=== PATIENT | female | born 1975 | race Caucasian/White ===

== ENCOUNTER 2020-12-05 10:21 | Outpatient (CLI) | payer BC | END 2020-12-05 10:22 | disposition home or self-care (01) | LOC: CSHLAB 10:21 | PROVIDERS: ATTEND Obstetrics & Gynecology | DX: Z01.812 Encounter for preprocedural laboratory examination (principal); Z20.822 Contact with and (suspected) exposure to COVID-19; N39.3 Stress incontinence (female) (male) | CPT/HCPCS: 85027; 86850; 86900; 86901; 87635; U0003; U0005 ==

== ENCOUNTER 2020-12-10 10:16 | Day surgery (SDC) | payer BC ==
[2020-12-05 12:43] LABS: Hemoglobin 14.3 g/dL (12.0-15.5); Mean Corpuscular HGB CONC 32.6 g/dL (32.0-36.0); Mean Corpuscular Hemoglobin 32.1 pg (27.0-33.0); Mean Corpuscular Volume 98.4 fl (81.6-98.3); Platelet Count 361 10x3/uL (150-450); Red Blood Cell (RBC) Count 4.45 10x6/uL (3.90-5.03); White Blood Cell (WBC) Count 6.3 10x3/uL (3.5-10.5)
[2020-12-05 23:22] LABS: SARS-CoV-2 PCR by NAA Not Detected (NotDetected)
[2020-12-06 11:41] VITALS: BMI 26.4
[2020-12-10] MEDS ORDERED: Lidocaine 1% MPF 2 ML VIAL ONE (10:50)
[2020-12-10] MEDS ORDERED: Famotidine/PF 20 mg/2ml Vial ONE (10:51)
[2020-12-10] MEDS ORDERED: Gabapentin 300 MG CAP ONE (10:53)
[2020-12-10] MEDS ORDERED: CeleCOXIB 100 MG CAP ONE (10:53)
[2020-12-10] MEDS ORDERED: Lidocaine 1% w/Epinephrine 1:100K 20 ML VIAL ONE (12:23)
[2020-12-10] MEDS ORDERED: Lidocaine 2% w/Epinephrine 1:200K 20 ML VIAL ONE (12:23)
[2020-12-10] MEDS ORDERED: Scopolamine 1.5 mg/72 hour Patch ONE (12:48)
[2020-12-10] MEDS ORDERED: Fentanyl 100 MCG/2 ML VIAL ONE ×2 (12:58→15:03)
[2020-12-10] MEDS ORDERED: Rocuronium Bromide 10 MG/ML (10ML VIAL) ONE (12:58)
[2020-12-10] MEDS ORDERED: PROPOFOL 20 ML ONE (12:58)
[2020-12-10] MEDS ORDERED: Lidocaine 1% PF 5 ML VIAL ONE (12:58)
[2020-12-10] MEDS ORDERED: Midazolam HCl 2 mg/2 ml Vial ONE (13:05)
[2020-12-10] MEDS ORDERED: diphenhydrAMINE 50 MG/ML VIAL ONE (13:39)
[2020-12-10] MEDS ORDERED: Ondansetron PF 4 MG/2 ML Vial ONE (13:39)
[2020-12-10] MEDS ORDERED: Dexamethasone 4 mg/ml Vial ONE (13:39)
[2020-12-10] MEDS ORDERED: PHENYLEPHRINE-NS 100 MCG/ML 10 ML SYRINGE ONE (14:09)
[2020-12-10] MEDS ORDERED: Glycopyrrolate 0.2 MG/ML 5 ML SYRINGE ONE (14:11)
[2020-12-10] MEDS ORDERED: Ondansetron PF 4 MG/2 ML Vial IVP PRN (14:17)
[2020-12-10] MEDS ORDERED: Zolpidem Tartrate 5 MG TAB PO PRN (14:17)
[2020-12-10] MEDS ORDERED: Morphine 2 MG/ML VIAL SLOW IVP PRN (14:17)
[2020-12-10] MEDS ORDERED: Morphine 4 MG/ML VIAL SLOW IVP PRN (14:17)
[2020-12-10] MEDS ORDERED: Bisacodyl 10 MG SUPP PR PRN (14:17)
[2020-12-10] MEDS ORDERED: HYDROcodone/Acetaminophen 10/325 mg Tablet PO PRN (14:17)
[2020-12-10] MEDS ORDERED: Promethazine HCl 25 MG/ML VIAL IM PRN ×2 (14:17→14:39)
[2020-12-10] MEDS ORDERED: traMADol HCl 50 MG TAB PO PRN ×2 (14:17)
[2020-12-10] MEDS ORDERED: diphenhydrAMINE 25 MG CAP PO PRN (14:17)
[2020-12-10] MEDS ORDERED: Promethazine HCl 25 MG/ML VIAL SLOW IVP PRN (14:39)
[2020-12-10] MEDS ORDERED: HYDROmorphone 2 MG/ML VIAL SLOW IVP PRN (14:39)
[2020-12-10] MEDS ORDERED: Meperidine HCl/PF 25 MG/ML VIAL SLOW IVP PRN (14:39)
[2020-12-10] MEDS: Ketorolac Tromethamine 30 MG/ML VIAL IVP SCH (18:29)
[2020-12-10] MEDS ORDERED: Simethicone Chewable 80 MG TAB PO PRN (19:00)
[2020-12-10] MEDS ORDERED: Melatonin 3 MG TAB PO SCH (21:00)
[2020-12-11] MEDS: Ketorolac Tromethamine 30 MG/ML VIAL IVP SCH (00:36)
[2020-12-11] MEDS: Docusate 100 MG CAP PO SCH ×2 (03:26→09:27)
[2020-12-11] MEDS: Liothyronine Sodium 5 MCG TAB PO SCH ×2 (03:27→09:29)
[2020-12-11 05:03] LABS: Hemoglobin 11.8 g/dL (12.0-15.5); Mean Corpuscular HGB CONC 34.4 g/dL (32.0-36.0); Mean Corpuscular Hemoglobin 33.1 pg (27.0-33.0); Mean Corpuscular Volume 96.3 fl (81.6-98.3); Platelet Count 356 10x3/uL (150-450); RBC Distribution Width 12.8 % (11.5-14.5); Red Blood Cell (RBC) Count 3.56 10x6/uL (3.90-5.03); White Blood Cell (WBC) Count 15.9 10x3/uL (3.5-10.5)
[2020-12-11] MEDS ORDERED: Levothyroxine Sodium 112 MCG TAB PO SCH (06:00)
[2020-12-11] MEDS ORDERED: Ibuprofen 800 MG TAB PO SCH (06:00)
[2020-12-11 07:56] VITALS: BP 98/55; TEMP 98.6
[2020-12-11] MEDS ORDERED: BIOTIN 5 MG PO SCH (09:00)
[2020-12-11] MEDS ORDERED: Ascorbic Acid 500 mg Chewable Tablet PO SCH (09:00)
[2020-12-11] MEDS ORDERED: PATIENT'S HOME MEDICATION PO SCH (09:00)
[2020-12-11] MEDS ORDERED: Lactinex Tablet PO SCH (09:00)
[2020-12-11] MEDS ORDERED: Liraglutide [Saxenda] 3 MG/0.5 ML Pen.Injctr SC SCH ×3 (09:00→12:45)
[2020-12-11] MEDS ORDERED: Stress 600 With Zinc 1 TAB PO SCH (09:00)
[2020-12-11] MEDS ORDERED: Polyethylene Glycol 3350 17 GM Packet PO SCH (09:00)
== END 2020-12-11 12:35 | disposition home or self-care (01) ==
LOC: CSHSDC 10:16 → CSHPP 14:45 → UNDOADMIN 14:45 → CSHPP 14:45 → UNDODISIN 12-11 12:35 → CSHSDC 12-11 12:35
PROVIDERS: ATTEND Obstetrics & Gynecology
PROC: 0TSD0ZZ Reposition Urethra, Open Approach (ICD-10-PCS; principal; 2020-12-10)
PROC: 0JQC0ZZ Repair Pelvic Region Subcutaneous Tissue and Fascia, Open Approach (ICD-10-PCS; principal; 2020-12-10)
DX: N39.3 Stress incontinence (female) (male) (principal); N81.10 Cystocele, unspecified; E03.9 Hypothyroidism, unspecified; Z79.1 Long term (current) use of non-steroidal anti-inflammatories (NSAID); Z79.899 Other long term (current) drug therapy; Z90.710 Acquired absence of both cervix and uterus; Z20.822 Contact with and (suspected) exposure to COVID-19
CPT/HCPCS: 85027; 86850; 86900; 86901; 87635; C1781; J0690; J1100; J1200; J1885; J2250; J2405; J2704; J3010; S0028; U0003; U0005

== ENCOUNTER 2021-09-24 10:33 | Outpatient (CLI) | payer BC | END 2021-09-24 10:34 | disposition home or self-care (01) | LOC: CSHRAD 10:33 | PROVIDERS: ATTEND Specialist | DX: S27.818 Other injury of esophagus (thoracic part) (principal) | CPT/HCPCS: 74220 ==